=== PATIENT | male | born 1960 | race Two or more races ===

== ENCOUNTER 2017-04-30 21:12 | Emergency (ER) | payer SELFPAY ==
[~2017-04-30] VITALS: Ht 172.7 cm; Wt 72.6 kg
[~2017-04-30 21:12] MED LIST: ASPI-495 PO; ATOR20TA PO; CARV6.25 PO; LISI-603 PO; LORA-258 PO; METO5TAB2 PO; OLME20TA15 PO; OMEP40CA37 PO
[2017-04-30] MEDS ORDERED: ASPIRIN 325 MG TABLET ONE (21:19)
--- NOTE | 2017-04-30 21:21 | NUR ---
57 YO MALE BB RA. 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 EMS ADMIN NITRO WITH RELIEF. PT ASSISTED TO ER BED, SKIN WARM AND DRY, RR EVEN AND UNLABORTED. PT DENIES RADIATION OF PAIN, SOB/ N/V. PT GOWNED, PLACED ON INTERACTIVE DEVELOPER. AWAITING ORDERS FROM PROVIDER
[2017-04-30] MEDS ORDERED: ASPIRIN 325 MG TABLET PO ONE (21:30)
[2017-04-30 21:35] LABS: BASOPHILS # (AUTO) 0.2 /CMM (0.0-0.2); BASOPHILS % (AUTO) 1.5 % (0.0-2.0); EOSINOPHILS # (AUTO) 0.3 /CMM (0.0-0.7); EOSINOPHILS % (AUTO) 2.4 % (0.0-6.0); HEMATOCRIT 43 % (39-51); LYMPHOCYTES # (AUTO) 3.3 /CMM (0.8-4.8); LYMPHOCYTES % (AUTO) 23.6 % (20.0-44.0); MEAN CORPUSCULAR HEMOGLOBIN 29 PG (26.0-33.0); MEAN CORPUSCULAR HGB CONC 33 g/dl (31.0-36.0); MEAN CORPUSCULAR VOLUME 88 fL (80-96); MONOCYTES # (AUTO) 0.9 /CMM (0.1-1.30); MONOCYTES % (AUTO) 6.8 % (2.0-12.0); NEUTROPHILS # (AUTO) 9.1 /CMM (1.8-8.9); NEUTROPHILS % (AUTO) 65.7 % (43.0-81.0); PLATELET COUNT (AUTO) 246 /CMM (150-450); RDW COEFFICIENT OF VARIATION 12.4 (11.5-15.0); RED BLOOD CELL COUNT(AUTO) 4.83 MIL/uL (4.5-6.0); WHITE BLOOD COUNT (AUTO) 13.8 K/uL (4.3-11.0)
[2017-04-30 21:45] LABS: CALCIUM, SERUM 8.4 mg/dL (8.5-10.1); CARBON DIOXIDE 24 mmol/L (21-32); CHLORIDE 107 mmol/L (98-107); CREATININE 1.1 mg/dL (0.6-1.3); GLUCOSE 122 mg/dL (74-106); POTASSIUM 3.1 mmol/L (3.5-5.1); SODIUM SERUM 140 mmol/L (136-145); UREA NITROGEN, BLOOD 18 mg/dL (7-18)
[2017-04-30 21:51] LABS: ALANINE AMINOTRANSFERASE 25 U/L (12-78); ALBUMIN 3.2 g/dL (3.4-5.0); ALKALINE PHOSPHATASE 75 U/L (46-116); ASPARTATE AMINOTRANSFERASE 20 U/L (15-37); BILIRUBIN,TOTAL 0.1 mg/dL (0.2-1.0); INR 0.94 (0.87-1.13); PROTHROMBIN TIME 9.8 SECS (9.5-12.7); TOTAL PROTEIN, SERUM 6.6 g/dL (6.4-8.2)
[2017-04-30 21:53] LABS: TROPONIN I < 0.017 ng/mL (0.00-0.056)
[2017-04-30] MEDS: MORPHINE SULFATE INJ 2 MG/ML DISP.SYRIN IV ONE ×2 (21:58→22:08)
[2017-04-30] MEDS: ONDANSETRON HCL/PF - ER 4 MG/2 ML VIAL IV ONE ×2 (21:58→22:09)
[2017-04-30] MEDS ORDERED: POTASSIUM CHLORIDE 20 MEQ TAB.PRT.SR PO ONE ×2 (21:59→22:00)
[2017-04-30] MEDS ORDERED: ONDANSETRON HCL/PF 4 MG/2 ML VIAL ONE (22:06)
[2017-04-30] MEDS ORDERED: MORPHINE SULFATE INJ 4 MG/ML DISP.SYRIN ONE (22:06)
[2017-04-30] MEDS ORDERED: CT SWABBABLE VALVE TRANS SET 1 EA INFUS.SET MC ONE (22:07)
[2017-04-30] MEDS ORDERED: IOHEXOL-350 100 ML VIAL IV ONE (22:07)
[2017-04-30] MEDS ORDERED: IV NS 0.9% 250 ML IV ONE (22:08)
--- NOTE | 2017-04-30 22:09 | NUR ---
PT TRANSPORTED TO CT VIA GURNEY BY RADIOLOGY TEAM
--- NOTE | 2017-05-01 00:26 | NUR ---
PT RESTING IN ER BED, NAD NOTED, SKIN WARM AND DRY. WILL CONTINUE TO MONITOR
--- NOTE | 2017-05-01 00:55 | NUR ---
VITAL SIGNS UPDATED.
[2017-05-01 01:25] VITALS: BP 125/74
--- NOTE | 2017-05-01 01:25 | NUR ---
Patient discharged to home in stable condition. Written and verbal after care instructions given. Patient verbalizes understanding of instruction.IV removed. Catheter intact and site benign. Pressure and 4x4 applied to site. No bleeding noted. PT ambulatory with a steady gait VITAL SIGNS WITHIN NORMAL LIMITS.
== END 2017-05-01 01:26 | disposition home or self-care (01) ==
LOC: ER 21:13
DX: R07.89 Other chest pain (principal); E87.6 Hypokalemia; I10 Essential (primary) hypertension; I25.10 Atherosclerotic heart disease of native coronary artery without angina pectoris; J84.10 Pulmonary fibrosis, unspecified; E78.00 Pure hypercholesterolemia, unspecified; F17.200 Nicotine dependence, unspecified, uncomplicated
CPT/HCPCS: 36415; 71010-TC; 80048-TC; 80076-TC; 84484-TC; 85025-TC; 85730-TC; A4606; J2270; J2405; J7050; Q9967; Z7610

== ENCOUNTER 2018-06-24 19:27 | Emergency (ER) | payer MEDICAID ==
[~2018-06-24] VITALS: Ht 170.2 cm; Wt 82.6 kg
[~2018-06-24 19:27] MED LIST changes: +OLME20TA13 PO; -OLME20TA15 PO
[2018-06-24 19:44] VITALS: BP 128/83
--- NOTE | 2018-06-24 20:52 | NUR ---
CALLED PT NAME IN WR TO BRING TO BED, NO ONE RESPONDED. WILL FOLLOW UP.
== END 2018-06-24 21:03 | disposition left against medical advice (07) ==
LOC: ER 19:30
DX: Z53.21 Procedure and treatment not carried out due to patient leaving prior to being seen by health care provider (principal); I10 Essential (primary) hypertension; E78.00 Pure hypercholesterolemia, unspecified
CPT/HCPCS: A4606; Z7610

== ENCOUNTER 2019-01-24 19:47 | Emergency (ER) ==
--- NOTE | 2019-01-24 20:15 | NUR ---
CALLED TO TRIAGE,PATIENT LEFT PER ADMITTING
--- NOTE | 2019-01-24 20:30 | NUR ---
CALLED TO TRIAGE, NO ANSWER
== END 2019-01-24 21:13 | disposition left against medical advice (07) ==
LOC: ER 19:50
DX: Z53.21 Procedure and treatment not carried out due to patient leaving prior to being seen by health care provider (principal)

== ENCOUNTER 2020-12-29 22:09 | Emergency (ER) | payer MEDICAID, OTHER ==
[~2020-12-29] VITALS: Ht 170.2 cm; Wt 79.4 kg
[~2020-12-29 22:09] MED LIST changes: -LISI-603 PO; +LISI20TA30 PO; +OMEP40CA13 PO; -OMEP40CA37 PO
[2020-12-29 22:29] LABS: BASOPHILS % (AUTO) 0.6 % (0.0-2.0); EOSINOPHILS % (AUTO) 0.8 % (0.0-6.0); HEMATOCRIT 44 % (39-51); LYMPHOCYTES # (AUTO) 1.5 /CMM (0.8-4.8); LYMPHOCYTES % (AUTO) 20.1 % (20.0-44.0); MEAN CORPUSCULAR HGB CONC 34 g/dl (31.0-36.0); MEAN CORPUSCULAR VOLUME 91 fL (80-96); MONOCYTES # (AUTO) 0.7 /CMM (0.1-1.30); MONOCYTES % (AUTO) 8.9 % (2.0-12.0); NEUTROPHILS # (AUTO) 5.3 /CMM (1.8-8.9); NEUTROPHILS % (AUTO) 69.6 % (43.0-81.0); PLATELET COUNT (AUTO) 207 /CMM (150-450); RED BLOOD CELL COUNT(AUTO) 4.88 MIL/uL (4.5-6.0); WHITE BLOOD COUNT (AUTO) 7.6 K/uL (4.3-11.0)
[2020-12-29 22:37] LABS: CALCIUM, SERUM 8.4 mg/dL (8.5-10.1); CARBON DIOXIDE 25 mmol/L (21-32); CHLORIDE 103 mmol/L (98-107); CREATININE 1.2 mg/dL (0.6-1.3); GLUCOSE 106 mg/dL (74-106); POTASSIUM 3.3 mmol/L (3.5-5.1); SODIUM SERUM 139 mmol/L (136-145); UREA NITROGEN, BLOOD 16 mg/dL (7-18)
--- NOTE | 2020-12-29 22:47 | NUR ---
PT IS THE PARENT OF THE PT ON ER BED 6. TO ER BED 12. PT HAD A SYNCOPAL EPISODE. PT REPORTS THAT HE FELT DIZZY AND TRIED TO SIT DOWN BEFORE HE PASSED OUT. PT HIT THE BACK OF HIS HEAD AGIANST THAT WALL. NO NOTED VISULA INJURY. MD WAS AT BEDSIDE FOR EVAL. ORDERS RECEIVED, NOTED AND CARRIED OUT
--- NOTE | 2020-12-29 23:49 | NUR ---
Patient does not wish to proceed with medical care recommended by Dr. Dianna Johnson. Patient given information related to possible complications, up to and including , which could occur as a result of leaving the hospital at this time. Patient verbalizes understanding of risks involved due to leaving against medical advice. Patient has signed AMA form.
[2020-12-29 23:51] VITALS: BP 116/74
== END 2020-12-29 23:52 | disposition left against medical advice (07) ==
LOC: ER 22:13
DX: R55 Syncope and collapse (principal); I10 Essential (primary) hypertension; E78.00 Pure hypercholesterolemia, unspecified; F17.200 Nicotine dependence, unspecified, uncomplicated; Z79.899 Other long term (current) drug therapy; Z79.82 Long term (current) use of aspirin
CPT/HCPCS: 36415; 70450-TC; 80048-TC; 82962-TC; 84484-TC; 85025-TC